=== PATIENT | female | born 1965 | race Caucasian/White ===

== ENCOUNTER 2021-04-13 16:04 | Emergency (ER) | payer OTHER ==
[~2021-04-13] VITALS: Ht 165.1 cm; Wt 96.6 kg
--- NOTE | 2021-04-13 16:04 | NUR ---
1601--PT BIBA VIA GURNEY TO BED 11.
--- NOTE | 2021-04-13 16:05 | NUR ---
55 y/o F BIBA from work c/o dizziness, nausea and ringing of the ears. Patient A&Ox4, non-ambulatory, EMS/fire states patient was at work cleaning around a generator when she "smelt something funny" and began experiencing dizziness + nausea +ringing of the ears. Pt experienced a near syncope. Pt presents lethargic, pale/diaphoretic with hand tremors, A&Ox3. P twith eyes closed pupils 3mm PERRLA. IV established to Left forearm 18G. 4mg Zofran IVP given prior to arrival. AccuChek 88. doctor of optometry in place; SpO2 95% on room air HR 79. Bed locked in lowest position, side rails x 1. PMH/Sx/Meds: Denies NKA Addendum: 04/13/21 at 1629 by [facility] Patient denies chest pain, SOB, cough, fever, chills, headache. EMS states patient fully vaccinated and received booster shot 2 weeks ago.
--- NOTE | 2021-04-13 16:05 | NUR ---
Dr. Smith is evaluating pt at bedside
[2021-04-13 16:07] VITALS: BP 176/96
[2021-04-13] MEDS ORDERED: NACL 0.9% 1,000 ML IV ONE (16:15)
--- NOTE | 2021-04-13 16:23 | NUR ---
EMT at bedside for EKG
--- NOTE | 2021-04-13 16:24 | NUR ---
Patient transported to [facility] by [facility].
[2021-04-13 17:16] LABS: APPEARANCE,URINE CLEAR (CLEAR); BILIRUBIN,URINE NEGATIVE (NEGATIVE); BLOOD, URINE TRACE-I (NEGATIVE); LEUKOCYTE ESTERASE ,URINE NEGATIVE (NEGATIVE); NITRITE, URINE NEGATIVE (NEGATIVE); UGLUCOSE NEGATIVE (NEGATIVE)
[2021-04-13 17:18] LABS: COLOR,URINE STRAW (YELLOW)
[2021-04-13 17:31] LABS: BASOPHILS % (AUTO) 0.6 % (0.0-2.0); EOSINOPHILS # (AUTO) 0.1 K/uL (0-0.4); EOSINOPHILS % (AUTO) 1.9 % (0.0-4.0); HEMATOCRIT 37.3 % (36-48); HEMOGLOBIN 12.4 g/dL (12.0-16.0); LYMPHOCYTES # (AUTO) 1.6 K/uL (2.5-16.5); MEAN CORPUSCULAR HEMOGLOBIN 29 pg (27-31); MEAN CORPUSCULAR HGB CONC 33 g/dL (33-37); MONOCYTES # (AUTO) 0.5 K/uL (0.8-1.0); MONOCYTES % (AUTO) 7.7 % (1.7-9.3); NEUTROPHILS # (AUTO) 3.9 K/uL (1.8-7.7); NEUTROPHILS % (AUTO) 63.8 % (42.2-75.2); PLATELET COUNT (AUTO) 161 K/uL (140-450); RED BLOOD CELL COUNT(AUTO) 4.34 MIL/uL (4.20-5.40); RED CELL DISTRIBUTION WIDTH 14.2 % (11.6-13.7); WHITE BLOOD COUNT (AUTO) 6.1 K/uL (4.8-10.8)
--- NOTE | 2021-04-13 17:35 | NUR ---
Patient resting with both eyes closed in semi-fowlers position. case monitor in place. remains at bedside. VSS; RR even/unlabored. Bed locked in lowest position, side rails x 1.
[2021-04-13 17:38] LABS: BARBITURATE, URINE NEGATIVE ng/ml (NEG <=200); BENZODIAZEPINE, URINE NEGATIVE ng/mL (NEG <=200); CANNABINOID, URINE NEGATIVE ng/mL (NEG <=50); COCAINE, URINE NEGATIVE ng/mL (NEG <=300)
[2021-04-13 17:39] LABS: OPIATE, URINE NEGATIVE ng/mL (NEG <=2000); PHENCYCLIDINE SCREEN,URINE NEGATIVE ng/mL (NEG <=25); RBC,URINE NONE SEEN /HPF (0-5); WBC,URINE NONE SEEN /HPF (0-5)
[2021-04-13 17:54] LABS: ALBUMIN 3.5 g/dL (3.4-5.0); ANION GAP 11.6 (8-16); ASPARTATE AMINOTRANSFERASE 10 U/L (15-37); CARBON DIOXIDE 26.6 mmol/L (21-32); CHLORIDE 111 mmol/L (98-107); CREATININE 0.6 mg/dL (0.6-1.3); FREE T4 (FREE THYROXINE) 1.24 ng/dL (0.76-1.46); GFR ARICAN-AMERICAN 133 mL/min (>90); GLUCOSE 94 mg/dL (74-106); POTASSIUM 4.2 mmol/L (3.5-5.1); SODIUM SERUM 145 mmol/L (136-145); THYROID STIMULATING HORMONE 1.33 uIU/mL (0.34-3.74); TOTAL BILIRUBIN 0.2 mg/dL (0.0-1.0); UREA NITROGEN, BLOOD 13 mg/dL (7-18)
[2021-04-13 18:25] LABS: ACETAMINOPHEN < 0.5 ug/ml (10-30)
[2021-04-13] MEDS ORDERED: MECL-303 PO (18:55)
[2021-04-13] MEDS ORDERED: ONDA-188 SL (18:55)
[2021-04-13 19:15] VITALS: BP 131/59
--- NOTE | 2021-04-13 19:15 | NUR ---
Patient discharged with v/s stable. Written and verbal after care instructions given and explained. Pt ambulatory accompanied by . Patient alert, oriented and verbalized understanding of instructions. Ambulatory with steady gait. All questions addressed prior to discharge. ID band removed. Patient advised to follow up with PMD. Rx of Antivert, Zofran ODT given. Patient educated on indication of medication including possible reaction and side effects. Opportunity to ask questions provided and answered.
== END 2021-04-13 19:15 | disposition home or self-care (01) ==
LOC: MED 16:04
DX: R55 Syncope and collapse (principal); R42 Dizziness and giddiness; R53.1 Weakness; E07.9 Disorder of thyroid, unspecified; Z98.890 Other specified postprocedural states; Z90.710 Acquired absence of both cervix and uterus
CPT/HCPCS: 36415; 70450; 71045; 80053; 80305; 81001; 82550; 84439; 84443; 84484; 85025; 93005; 96360; 99285; G0480; G0482; J7030; Q0092